=== PATIENT | female | born 1955 | race Two or more races ===

== ENCOUNTER 2019-01-18 08:34 | Emergency (ER) | payer MEDICAID ==
[~2019-01-18] VITALS: Ht 152.4 cm; Wt 72.6 kg
[2019-01-18] MEDS ORDERED: NKM (08:46)
--- NOTE | 2019-01-18 08:48 | NUR ---
ED Nurse Note: Pt from home came in due to headache, dizziness and coughing x 1 week. Denies fever. Pt is taking azithromycin at home but not relieving her cough. Pt is AAO x4, ambulatory with non labored breathing.
--- NOTE | 2019-01-18 09:40 | NUR ---
ED Nurse Note: dialysis chief equipment technician at the bed side for CXR.
[2019-01-18 09:52] LABS: APPEARANCE,URINE CLEAR; BILIRUBIN, URINE NEGATIVE (NEGATIVE); COLOR,URINE PALE YELLOW; GLUCOSE, URINE (UA) NEGATIVE (NEGATIVE); KETONES,URINE NEGATIVE (NEGATIVE); LEUKOCYTE ESTERASE ,URINE 1+ (NEGATIVE); NITRITE,URINE NEGATIVE (NEGATIVE); PH,URINE 6.5 (4.5-8.0); PROTEIN,URINE NEGATIVE (NEGATIVE); UROBILINOGEN,URINE NORMAL MG/DL (0.0-1.0)
[2019-01-18 09:55] LABS: BASOPHILS % (AUTO) 0.9 % (0.0-2.0); EOSINOPHILS % (AUTO) 1.6 % (0.0-3.0); HEMOGLOBIN 15.3 G/DL (12.0-16.0); LYMPHOCYTES % (AUTO) 35.6 % (20.0-45.0); MEAN CORPUSCULAR VOLUME 92 FL (80-99); MONOCYTES % (AUTO) 7.6 % (1.0-10.0); NEUTROPHILS % (AUTO) 54.4 % (45.0-75.0); PLATELET COUNT 207 K/UL (150-450); RED BLOOD COUNT 5.01 M/UL (4.20-5.40); RED CELL DISTRIBUTION WIDTH 11.4 % (11.6-14.8); WHITE BLOOD COUNT 7.8 K/UL (4.8-10.8)
[2019-01-18 09:56] VITALS: BP 148/76
--- NOTE | 2019-01-18 09:59 | Emergency Room Report ---
History of Present Illness General Chief Complaint: Flu Like Symptoms Source: Patient, Family Member Present Illness HPI This patient states that for the past few days she has had fatigue, body aches, headache and cough. She denies fever or chills. She denies nausea or vomiting. She denies localized weakness. She denies tingling or numbness. She states she is also felt lightheaded. She denies chest pain or shortness of breath. She denies abdominal pain. She denies dysuria or hematuria. She denies sore throat. She denies blurry vision. She has no other complaints. Allergies: Coded Allergies: No Known Allergies (Unverified , 01/18/19) Patient History Past Medical History: none, see triage record Social History: Denies: smoking, alcohol use, drug use Last Menstrual Period: menopause Now: No Reviewed Nursing Documentation: PMH: Agreed; PSxH: Agreed Nursing Documentation-PMH Past Medical History: No Stated History Review of Systems All Other Systems: negative except mentioned in HPI Physical Exam Vital Signs Date Time Temp Pulse Resp B/P (MAP) Pulse Ox O2 Delivery O2 Flow Rate FiO2 01/18/19 08:38 98.4 67 16 120/66 93 Room Air Sp02 EP Interpretation: reviewed, normal General Appearance: no apparent distress, alert, GCS 15, non-toxic Head: normocephalic, atraumatic Eyes: bilateral eye normal inspection, bilateral eye PERRL ENT: hearing grossly normal, normal pharynx, no angioedema, normal voice Neck: full range of motion, supple/symm/no masses Respiratory: chest non-tender, lungs clear, normal breath sounds, no respiratory distress, no retraction, no accessory muscle use, speaking full sentences Cardiovascular #1: regular rate, rhythm, no edema Rectal: deferred Musculoskeletal: back normal, gait/station normal, normal range of motion, non- tender Neurologic: alert, oriented x3, responsive, motor strength/tone normal, sensory intact, speech normal Psychiatric: judgement/insight normal, memory normal, mood/affect normal, no suicidal/homicidal ideation Skin: normal color, no rash, warm/dry, well hydrated Medical Decision Making Diagnostic Impression: Primary Impression: URI (upper respiratory infection) Additional Impressions: Viral syndrome Hematuria ER Course This patient has a clinical presentation consistent with viral syndrome. Symptoms are nonspecific. There are no red flags on physical exam that would make me concerned for serious illness. This includes no evidence of meningitis , intra-abdominal process that would make me concerned for appendicitis or diverticulitis or other surgical or emergency etiology. Overall, this patient' s presentation is benign and the patient is nontoxic. Laboratory workup is negative. There is no evidence of an emergency medical condition. The patient is given close return precautions and followup instructions. Laboratory Tests Test 01/18/19 09:40 White Blood Count 7.8 K/UL (4.8-10.8) Red Blood Count 5.01 M/UL (4.20-5.40) Hemoglobin 15.3 G/DL (12.0-16.0) Hematocrit 46.0 % (37.0-47.0) Mean Corpuscular Volume 92 FL (80-99) Mean Corpuscular Hemoglobin 30.5 PG (27.0-31.0) Mean Corpuscular Hemoglobin Concent 33.2 G/DL (32.0-36.0) Red Cell Distribution Width 11.4 % (11.6-14.8) L Platelet Count 207 K/UL (150-450) Mean Platelet Volume 10.2 FL (6.5-10.1) H Neutrophils (%) (Auto) 54.4 % (45.0-75.0) Lymphocytes (%) (Auto) 35.6 % (20.0-45.0) Monocytes (%) (Auto) 7.6 % (1.0-10.0) Eosinophils (%) (Auto) 1.6 % (0.0-3.0) Basophils (%) (Auto) 0.9 % (0.0-2.0) Urine Color Pale yellow Urine Appearance Clear Urine pH 6.5 (4.5-8.0) Urine Specific [place] 1.015 (1.005-1.035) Urine Protein Negative (NEGATIVE) Urine Glucose (UA) Negative (NEGATIVE) Urine Ketones Negative (NEGATIVE) Urine Blood 3+ (NEGATIVE) H Urine Nitrite Negative (NEGATIVE) Urine Bilirubin Negative (NEGATIVE) Urine Urobilinogen Normal MG/DL (0.0-1.0) Urine Leukocyte Esterase 1+ (NEGATIVE) H Urine RBC 5-10 /HPF (0 - 2) H Urine WBC 0-2 /HPF (0 - 2) Urine Squamous Epithelial Cells Few /LPF (NONE/OCC) Urine Bacteria Occasional /HPF (NONE) Sodium Level 141 MMOL/L (136-145) Potassium Level 3.7 MMOL/L (3.5-5.1) Chloride Level 105 MMOL/L (98-107) Carbon Dioxide Level 30 MMOL/L (21-32) Anion Gap 6 mmol/L (5-15) Blood Urea Nitrogen 12 mg/dL (7-18) Creatinine 0.7 MG/DL (0.55-1.30) Estimate Glomerular Filtration Rate > 60 mL/min (>60) Glucose Level 87 MG/DL (74-106) Calcium Level 8.9 MG/DL (8.5-10.1) Total Bilirubin 0.3 MG/DL (0.2-1.0) Aspartate Amino Transferase (AST) 13 U/L (15-37) L Alanine Aminotransferase (ALT) 36 U/L (12-78) Alkaline Phosphatase 121 U/L (46-116) H Troponin I 0.000 ng/mL (0.000-0.056) Total Protein 7.5 G/DL (6.4-8.2) Albumin 3.5 G/DL (3.4-5.0) Globulin 4.0 g/dL Albumin/Globulin Ratio 0.9 (1.0-2.7) L EKG Diagnostic Results Rate: bradycardiac Rhythm: other - S.bradycardia ST Segments: no acute changes Rhythm Strip Diag. Results EP Interpretation: yes Rate: 50's Rhythm: no PVC's, no ectopy Chest X-Ray Diagnostic Results Chest X-Ray Diagnostic Results : Chest X-Ray Ordered: Yes # of Views/Limited/Complete: 1 View Indication: Other - cough EP Interpretation: Yes Interpretation: no effusion, no pneumothorax, no acute cardiopulmonary disease Impression: No acute disease Last Vital Signs Date Time Temp Pulse Resp B/P (MAP) Pulse Ox O2 Delivery O2 Flow Rate FiO2 01/18/19 09:56 98.4 70 19 148/76 95 Room Air Status: improved Disposition: HOME, SELF-CARE Condition: Improved Referrals: NON PHYSICIAN (PCP) Colette Dinero DO Jan 18, 2019 09:59
--- NOTE | 2019-01-18 09:59 | NUR ---
ED Nurse Note: Collected blood, urine and flu swab sent.
[2019-01-18 10:01] LABS: ANION GAP 6 mmol/L (5-15); BLOOD UREA NITROGEN 12 mg/dL (7-18); CALCIUM 8.9 MG/DL (8.5-10.1); CARBON DIOXIDE 30 MMOL/L (21-32); CHLORIDE 105 MMOL/L (98-107); CREATININE 0.7 MG/DL (0.55-1.30); POTASSIUM 3.7 MMOL/L (3.5-5.1); SODIUM 141 MMOL/L (136-145)
[2019-01-18 10:06] LABS: ALANINE AMINOTRANSFERASE 36 U/L (12-78); ALBUMIN 3.5 G/DL (3.4-5.0); ALBUMIN/GLOBULIN RATIO 0.9 (1.0-2.7); ALKALINE PHOSPHATASE 121 U/L (46-116); ASPARTATE AMINO TRANSFERASE 13 U/L (15-37); BILIRUBIN,TOTAL 0.3 MG/DL (0.2-1.0)
[2019-01-18] MEDS ORDERED: NITROFURANTOIN100 M2 ORAL (11:38)
--- NOTE | 2019-01-18 11:38 | Diagnostic Imaging Report ---
Indication: Cough Technique: One view of the chest Comparison: none Findings: The heart is mildly enlarged. Inspiration is suboptimal with some crowding of bronchovascular markings particularly there lung bases. There is central chronic appearing bronchial wall thickening. No definite infiltrates, effusions, or congestion. Impression: Cardiomegaly No definite acute process
--- NOTE | 2019-01-18 11:41 | NUR ---
ED Nurse Note: PT LAYING PEACEFULLY IN BED IN NAD. AOX4. PRESCRIPTION AND DISCHARGE PAPERWORK EXPLAINED TO PT. PT VERBALIZES UNDERSTANDING AND ALL QUESTIONS ANSWERED. PRESCRIPTION SENT ELECTRONICALLY. DISCHARGE PAPERWORK GIVEN TO PT, IV AND ID WRISTBAND REMOVED. PT WALKED OUT OF ER WITH STEADY GAIT AND ALL BELONGINGS.
[2019-01-18 11:44] VITALS: BP 132/74
== END 2019-01-18 11:45 | disposition home or self-care (01) ==
LOC: EMR 09:15
DX: J06.9 Acute upper respiratory infection, unspecified (principal); B97.89 Other viral agents as the cause of diseases classified elsewhere; R31.9 Hematuria, unspecified
CPT/HCPCS: 36415; 71045; 80053; 81003; 84484; 85025; 86710; 93005; 96360; 99284

== ENCOUNTER 2019-11-21 17:45 | Emergency (ER) | payer MEDICAID, OTHER ==
[~2019-11-21] VITALS: Ht 154.9 cm; Wt 77.1 kg
[~2019-11-21 17:45] MED LIST: NITROFURANTOIN100 M2 ORAL; NKM
--- NOTE | 2019-11-21 18:10 | NUR ---
ED Nurse Note: Pt came in to ER d/t LT side facial weakness, back pain started this thursday. Pt is AOx4, ambulatory, VSS, satting on 97% on RA. Per assessment, pt is able to lift/control bilateral upper extremities. Placed on bed and gown; hooked to security monitor.
[2019-11-21] MEDS ORDERED: Omnipaque 350 100ml vial INJ PRN (18:15)
--- NOTE | 2019-11-21 18:25 | NUR ---
ED Nurse Note: Pt went on CT accompanied by tech.
--- NOTE | 2019-11-21 18:38 | Diagnostic Imaging Report ---
Indications: Left-sided facial numbness and facial droop and inability to close left eye Technique: Spiral acquisitions obtained through the brain. Angled axial and coronal 5 x 5 mm slices were reconstructed. Total dose length product 984 mGycm. CTDI vol(s) 53 mGy. Dose reduction achieved using automated exposure control Comparison: None. Findings: No acute intracranial hemorrhage or edema. No mass effect or midline shift. Normal carranza-white differentiation. Normal size ventricles and extra-axial CSF spaces. Visualized orbits and sinuses are unremarkable. The calvarium is intact. The mastoids are clear. Impression: Negative This agrees with the preliminary interpretation provided overnight by [facility] teleradiology service. The CT scanner at [facility] is accredited by the [employer] and the scans are performed using protocols designed to limit radiation exposure to as low as reasonably achievable to attain images of sufficient resolution adequate for diagnostic evaluation.
[2019-11-21 18:46] LABS: INR 0.9 (0.9-1.1)
--- NOTE | 2019-11-21 18:46 | Emergency Room Report ---
History of Present Illness General Chief Complaint: Headache Source: Patient Present Illness HPI Disclaimer: Please note that this report is being documented using [employer] technology. This can lead to erroneous entry secondary to incorrect interpretation by the dictating instrument. HPI: 64-year-old female with smoking history presents for evaluation of left- sided facial numbness and inability to close her eye as well as facial droop. Symptoms began this morning first noticed when she awoke. They have been worsening throughout the day. States she cannot feel light touch over the left side of the face, cannot close the left eye and family is noted droop on the left side. She denies changes in her vision. She denies changes in her strength or sensation in the extremities. Denies ataxia. Family states she has been mentating appropriately. No prior history of stroke, CAD, diabetes, A. fib. Takes no medications. She is also complaining of an occipital headache that is been worsening throughout the day. The headache has been intermittent over the past 2 days. Denies any trauma. PMH: Denies PSH: Denies Allergies: Denies Social Hx: Extensive smoking history Allergies: Coded Allergies: No Known Allergies (Unverified , 01/18/19) Patient History Now: No Nursing Documentation-PMH Past Medical History: No Stated History Review of Systems All Other Systems: negative except mentioned in HPI Physical Exam Vital Signs Date Time Temp Pulse Resp B/P (MAP) Pulse Ox O2 Delivery O2 Flow Rate FiO2 11/21/19 18:05 98.2 88 20 98 Room Air General: Awake and alert, no acute distress HEENT: NC/AT. EOMI. PERRLA. Tympanic membranes mildly erythematous, no vesicles , nonbulging. Visual bernal are full. Unable to fully close the left eye. No nystagmus. Mild facial droop on the left side. Decreased sensation to light touch over the left face Cardiovascular: RRR. S1 and S2 normal. No murmur appreciated Resp: Normal work of breathing. No cough, wheezing or crackles appreciated Abdomen: Abdomen is soft, nondistended. Nontender Skin: Intact. No abrasions, laceration or rash over the exposed skin MSK: Normal tone and bulk. Moving all extremities. No obvious deformity. There is no drift in the upper or lower extremities bilaterally. Neuro: Awake and alert. Mentating appropriately. Facial expression symmetrical. No dysarthria, no ataxia on ehtqpp-bgeh-myhiym or kijj-vj-ryvo testing. Sensation to light touch is intact over the upper and lower extremities. The patient has intact speech with good repetition, comprehension. Fund of knowledge is full. No aphasia, no neglect. NIH: 3 Procedures Critical Care Time Critical Care Time Total critical care time: Approximately 45 minutes Due to a high probability of clinically significant, life threatening deterioration, the patient required the highest level of preparedness to intervene emergently and I personally spent this critical care time directly and personally managing the patient. This critical care time included obtaining a history, examining the patient, pulse oximetry, ordering and reviewing studies , ordering treatments, evaluating response to treatment and updating management plan as needed, frequent reassessment and discussion with other providers as well as arranging for ultimate disposition. This critical to care time was performed to assess and manage the high probability of life-threatening deterioration that could result in multiorgan failure. This critical care time is separate from the separately billable procedures and treating other patients. Medical Decision Making Diagnostic Impression: Primary Impression: Facial droop ER Course 64-year-old female presents for evaluation of facial droop, sensory changes over the face and inability close the left eye. Differential includes was not limited to CVA, Madeleine syndrome, intracranial bleed, carotid dissection, Galeano's palsy. Patient sent immediately for CT scan with an additional CTA of the neck. Unfortunately, it seems that the symptoms were present at patient's awakening this morning. Certainly out of the 4.5 hour intervention window. Does not qualify for acute thrombolytics. Last known normal was Thursday night the , 3 days ago. Symptoms truly began Thursday morning the . Will give aspirin after CT if no bleed identified Laboratory Tests Test 11/21/19 18:24 White Blood Count 10.6 K/UL (4.8-10.8) Red Blood Count 4.72 M/UL (4.20-5.40) Hemoglobin 15.2 G/DL (12.0-16.0) Hematocrit 42.4 % (37.0-47.0) Mean Corpuscular Volume 90 FL (80-99) Mean Corpuscular Hemoglobin 32.2 PG (27.0-31.0) H Mean Corpuscular Hemoglobin Concent 35.8 G/DL (32.0-36.0) Red Cell Distribution Width 11.2 % (11.6-14.8) L Platelet Count 211 K/UL (150-450) Mean Platelet Volume 11.3 FL (6.5-10.1) H Neutrophils (%) (Auto) 52.4 % (45.0-75.0) Lymphocytes (%) (Auto) 36.1 % (20.0-45.0) Monocytes (%) (Auto) 8.6 % (1.0-10.0) Eosinophils (%) (Auto) 2.0 % (0.0-3.0) Basophils (%) (Auto) 0.8 % (0.0-2.0) Prothrombin Time 9.9 SEC (9.30-11.50) Prothrombin Time INR 0.9 (0.9-1.1) Activated Partial Thromboplast Time 27 SEC (23-33) Sodium Level 143 MMOL/L (136-145) Potassium Level 3.6 MMOL/L (3.5-5.1) Chloride Level 106 MMOL/L (98-107) Carbon Dioxide Level 27 MMOL/L (21-32) Anion Gap 10 mmol/L (5-15) Blood Urea Nitrogen 18 mg/dL (7-18) Creatinine 0.7 MG/DL (0.55-1.30) Estimate Glomerular Filtration Rate > 60 mL/min (>60) Glucose Level 106 MG/DL (74-106) Calcium Level 9.0 MG/DL (8.5-10.1) Total Bilirubin 0.2 MG/DL (0.2-1.0) Aspartate Amino Transferase (AST) 10 U/L (15-37) L Alanine Aminotransferase (ALT) 27 U/L (12-78) Alkaline Phosphatase 154 U/L (46-116) H Total Protein 7.4 G/DL (6.4-8.2) Albumin 3.6 G/DL (3.4-5.0) Globulin 3.8 g/dL Albumin/Globulin Ratio 0.9 (1.0-2.7) L Triglycerides Level 220 MG/DL (30-150) H Cholesterol Level 160 MG/DL (< 200) LDL Cholesterol 97 mg/dL (<100) HDL Cholesterol 45 MG/DL (40-60) Cholesterol/HDL Ratio 3.6 (3.3-4.4) EKG Diagnostic Results EKG Time: 19:08 Rate: normal Rhythm: NSR ST Segments: no acute changes Other Impression Sinus rhythm, borderline left axis, no ST ischemic changes Rhythm Strip Diag. Results Rhythm Strip Time: 19:08 EP Interpretation: yes Rate: 60s Rhythm: NSR, no PVC's, no ectopy CT/MRI/US Diagnostic Results CT/MRI/US Diagnostic Results : Impression Preliminary Findings Only See Final Report For Complete Findings MRI HEAD Without Contrast: There is no diffusion restriction to acute ischemia or infarction. There are very mild T2/fair hyperintensities within the periventricular white matter which may be related to mild chronic microvascular ischemic disease. There is no evidence of acute intracranial hemorrhage. The orbits are unremarkable. There is mild ethmoid sinus mucous thickening. The paranasal sinuses and mastoid air cells are otherwise clear. Radiologist: Rob Steven MD Preliminary Findings Only See Final Report For Complete Findings CTA NECK W/WO Contrast: Impression: Very mild atherosclerotic disease throughout the carotid systems bilaterally. No focal area of stenosis or other focal abnormalities. Incidental findings: Atherosclerotic disease of the thoracic aortic arch. Cardiomegaly is suggested. Good flow is demonstrated within the common carotid arteries. The region of the carotid bifurcations are unremarkable. Very minimal atherosclerotic disease noted bilaterally. Extra cranial segments of the internal carotid arteries are unremarkable. Vertebral arteries are unremarkable with good flow. Radiologist: Justino Arias MD Study ready at 18:55 and initial results transmitted at 19:03 Preliminary Findings Only See Final Report For Complete Findings CT HEAD Without Contrast: Impression: No acute intracranial pathology is detected. If there is concern for etiology such as early acute lacunar infarcts, magnetic resonance imaging of the brain with diffusion-weighted sequences should be performed for follow- up. Incidental findings: Axial images are provided. The ventricular system is age appropriate. No focal white matter changes. No midline shift or mass-effect. No abnormal extra-axial collection. Mastoid air cells are well pneumatized. Visualized sinuses are unremarkable. The calvarium is within normal limits. Radiologist: Justino Arias MD Study ready at 18:35 and initial results transmitted at 18:37 Reevaluation Time: 21:03 Last Vital Signs Date Time Temp Pulse Resp B/P (MAP) Pulse Ox O2 Delivery O2 Flow Rate FiO2 2/17/20 18:05 98.2 88 20 98 Room Air Reevaluation Impression No significant findings on noncontrast CT scan of the head or the CTA of the neck. Mild atherosclerotic disease noted on preliminary interpretation. MRI is pending. Labs returned within normal limits. The patient remains unchanged. Remains with left-sided facial droop and paresthesias and forehead sparing. Discussed with [facility] attending who has accepted the patient for admission there. She is stable for transfer. MRI does not show acute findings of stroke. The patient continues to be symptomatic. May be a Galeano's palsy however should be evaluated by neurology. Will transfer. [facility] Condition: Serious Scripts No Active Prescriptions or Reported Meds Cortez Palma MD Nov 21, 2019 18:46
[2019-11-21 18:52] VITALS: BP 142/71
[2019-11-21 18:59] LABS: ANION GAP 10 mmol/L (5-15); BLOOD UREA NITROGEN 18 mg/dL (7-18); CARBON DIOXIDE 27 MMOL/L (21-32); CHLORIDE 106 MMOL/L (98-107); CREATININE 0.7 MG/DL (0.55-1.30); POTASSIUM 3.6 MMOL/L (3.5-5.1); SODIUM 143 MMOL/L (136-145)
[2019-11-21 19:04] LABS: ALANINE AMINOTRANSFERASE 27 U/L (12-78); ALBUMIN 3.6 G/DL (3.4-5.0); ALBUMIN/GLOBULIN RATIO 0.9 (1.0-2.7); ALKALINE PHOSPHATASE 154 U/L (46-116); ASPARTATE AMINO TRANSFERASE 10 U/L (15-37); BILIRUBIN,TOTAL 0.2 MG/DL (0.2-1.0); CHOLESTEROL 160 MG/DL (< 200)
--- NOTE | 2019-11-21 19:04 | Diagnostic Imaging Report ---
ndication: Left-sided facial numbness and facial droop Technique: IV administration nonionic contrast. Spiral acquisitions obtained through the neck. Multiplanar and 3-D reconstructions were generated. Total dose length product 188 mGycm. CTDIvol(s) 27 mGy. Dose reduction achieved using automated exposure control Comparison: none Findings: Normal aortic arch. Variant great vessels branching anatomy with common origin of the right brachiocephalic and left common carotid artery. Patent nonstenotic right brachiocephalic, carotid, and internal carotid arteries. Patent nonstenotic left common carotid and internal carotid arteries. Patent nonstenotic bilateral proximal subclavian arteries and bilateral vertebral arteries. Vertebral arteries are codominant. The upper aerodigestive tract is unremarkable. There are a few prominent left submandibular nodes, but no carlie cervical mass or adenopathy. The sinuses are clear. Visualized intracranial structures are unremarkable. The included upper lungs demonstrate mild diffuse groundglass opacity. The included upper mediastinum is unremarkable. The thyroid is unremarkable. Impression: Negative for evidence of extracranial cerebrovascular insufficiency This agrees with the preliminary interpretation provided overnight by [facility] service. The CT scanner at [facility] is accredited by the [employer] and the scans are performed using protocols designed to limit radiation exposure to as low as reasonably achievable to attain images of sufficient resolution adequate for diagnostic evaluation.
--- NOTE | 2019-11-21 19:07 | NUR ---
HAND-OFF: Report given to TREE Thompson.
[2019-11-21 19:15] LABS: HDL CHOLESTEROL 45 MG/DL (40-60); TRIGLYCERIDES 220 MG/DL (30-150)
--- NOTE | 2019-11-21 19:15 | NUR ---
ED Nurse Note: Recieved report from am nurse to resume care, pt in bed awake and alert, pt is not on monitoring, placed pt on bow stapler, pt here for s/s of CVA with left eye and facial droop, pt had headache but states not now, denies chest pain, no sob or labored breathing, pt family at bedside, b/p slightly elevated, MD informed immediately, pt waiting to be taken to MRI imaging, will continue to monitor for any acute chagnes or increased s/s.
[2019-11-21 19:45] VITALS: BP 144/78
[2019-11-21 19:51] LABS: BASOPHILS % (AUTO) 0.8 % (0.0-2.0); HEMATOCRIT 42.4 % (37.0-47.0); HEMOGLOBIN 15.2 G/DL (12.0-16.0); LYMPHOCYTES % (AUTO) 36.1 % (20.0-45.0); MEAN CORPUSCULAR VOLUME 90 FL (80-99); MONOCYTES % (AUTO) 8.6 % (1.0-10.0); NEUTROPHILS % (AUTO) 52.4 % (45.0-75.0); PLATELET COUNT 211 K/UL (150-450); RED BLOOD COUNT 4.72 M/UL (4.20-5.40); RED CELL DISTRIBUTION WIDTH 11.2 % (11.6-14.8); WHITE BLOOD COUNT 10.6 K/UL (4.8-10.8)
--- NOTE | 2019-11-21 20:45 | NUR ---
ED Nurse Note: Pt returned from imaging, no changes or increased distress, re-placed on monitoring, pt family remains at bedside, saline lock intact and patent, pt denies chest pain and headache at 02/11, pt being transferred to another hospital for continued care, pt is aware and transfer form signed, all family aware also, pt medicated with ASA, will continue to closely monitor while waiting for transfer.
[2019-11-21 21:00] VITALS: BP 156/72
--- NOTE | 2019-11-21 21:16 | Diagnostic Imaging Report ---
Indication: Facial droop and facial numbness on the left side, inability closed by Technique: sagittal T1 fast spin echo, axial T1 FLAIR, axial T2 FLAIR, axial T2 FS PROPELLER, axial T2* GRE, axial diffusion weighted images. ADC and exponential ADC maps generated Comparison: No comparison MRIs. Reference made to brain CT of one hour earlier Findings: No abnormal areas of restricted diffusion to suggest acute infarction. No acute hemorrhage or edema. No mass effect nor midline shift. Normal size ventricles and extra axial CSF spaces. Minimal increased T2 signal is seen in the subependymal region and a few foci in the periventricular deep white matter Visualized orbits and sinuses are unremarkable. Vascular flow voids are preserved. Impression: Negative. Negative no evidence of acute intracranial bleed, mass effect, or infarct Minimal periventricular T2 FLAIR hyperintensity consistent with chronic microvascular ischemic change
--- NOTE | 2019-11-21 23:10 | NUR ---
ED Nurse Note: Pt continues to rest quietly in bed, awake and alert, ambulating to bathroom, no acute chagnes or increased distress, pt daughter remains at bedside, pt waiting for hospital transfer, IV site patent, pt denies chest pain, remains with headache at 7/10 but states does not want any medications, its ok, pt neuro checks without changes, will continue to closely monitor while waiting for pt transport, [id number].
[2019-11-21 23:15] VITALS: BP 151/68
--- NOTE | 2019-11-22 00:25 | NUR ---
ED Nurse Note: Pt being transferred to [facility] for continued care, transport here early, report called to LexyRN at [phone], report and al lpertinent info given, pt daughter at bedside and family aware of transfer, belongings with pt, all forms and report given to medical van driver, rig#[id number], nad noted during pt transport to hospital, pt leaving via gurney and ALS transfer.
[2019-11-22 00:45] VITALS: BP 151/68
== END 2019-11-22 00:45 | disposition short-term general hospital (02) ==
LOC: EMR 20:11
DX: R29.810 Facial weakness (principal); I70.90 Unspecified atherosclerosis
CPT/HCPCS: 36415; 70450; 70498; 70551; 80053; 80061; 82962; 85025; 85610; 85730; 93005; Q9967; Z7502; 99291